=== PATIENT | male | born 1970 | race Caucasian/White ===

== ENCOUNTER 2019-01-08 07:58 | Observation (INO) | payer BC ==
[2019-01-06 12:45] LABS: BASOPHILS # (AUTO) 0.1 (0.0-0.1); BASOPHILS % 0.8 % (0.0-1.0); EOSINOPHILS # (AUTO) 0.3 (0.0-0.4); EOSINOPHILS % 4.4 % (0.0-6.0); HEMATOCRIT 44.9 % (38.2-49.6); HEMOGLOBIN 15.5 g/dL (14.0-18.0); LYMPHOCYTES # (AUTO) 1.6 (1.0-3.2); MEAN CORPUSCULAR HEMOGLOBIN 30.6 pg (28-32); MEAN CORPUSCULAR HGB CONC 34.5 g/dL (31-35); MEAN CORPUSCULAR VOLUME 88.6 fL (81-99); MONOCYTES # (AUTO) 0.8 (0.2-0.8); MONOCYTES % 10.8 % (4.4-11.3); NEUTROPHILS # (AUTO) 4.7 (2.1-6.9); NEUTROPHILS % 62.5 % (38.7-80.0); PLATELET COUNT 234 x10e3/uL (140-360); RED BLOOD COUNT 5.07 x10e6/uL (4.3-5.7); RED CELL DISTRIBUTION WIDTH 12.7 % (11.7-14.4)
[2019-01-06 12:59] LABS: INR 0.92; PROTHROMBIN TIME 12.9 seconds (11.9-14.5)
[2019-01-06 13:00] LABS: PARTIAL THROMBOPLASTIN TIME 30.1 seconds (23.8-35.5)
[2019-01-06 13:07] LABS: ANION GAP 12.8 mmol/L (8-16); BLOOD UREA NITROGEN 19 mg/dL (7-26); BUN/CREATININE RATIO 21 (6-25); CALCIUM 9.8 mg/dL (8.4-10.2); CARBON DIOXIDE 23 mmol/L (22-29); CHLORIDE 107 mmol/L (98-107); CREATININE, SERUM 0.91 mg/dL (0.72-1.25); EST GLOMERULAR FILTRATION RATE > 60 ML/MIN (60-); GLUCOSE 95 mg/dL (74-118); POTASSIUM 3.8 mmol/L (3.5-5.1); SODIUM 139 mmol/L (136-145)
--- NOTE | 2019-01-06 14:55 | Diagnostic Imaging Report ---
EXAMINATION: CHEST 2 VIEWS INDICATION: Pre-operative COMPARISON: None FINDINGS: LINES/TUBES:None LUNGS:The lungs are well-inflated. No focal consolidation or pulmonary edema. PLEURA:No pleural effusion or pneumothorax. MEDIASTINUM:The cardiomediastinal silhouette appears normal in size and shape. BONES/SOFT TISSUES:No acute osseous injury. ABDOMEN:No free air under the diaphragm. IMPRESSION: No focal pneumonia or pulmonary edema. Signed by: Gianni Hurtado MD on 01/06/2019 2:51 PM
[~2019-01-08] VITALS: Ht 182.9 cm; Wt 130.7 kg
[~2019-01-08 07:58] MED LIST: ACETAMINOPHEN 1000 MG/100 ML 100 ML IV ONE; ADDERALL 30 MG30 MG PO; ATORVASTATIN CA10 MG PO; LIDOCAINE HCL (LTA) 4 ML SOLN ONE; PRAVASTATIN SOD10 MG PO
--- OUTSIDE RECORDS SUMMARY | 2019-01-08 08:02 | XMS REPORT ---
Author Author [facility] Address Unknown Phone Unavailable Care Team Providers Care Art Editor Name Role Phone SAM LOBO Unavailable Unavailable Problems This patient has no known problems. Allergies, Adverse Reactions, Alerts This patient has no known allergies or adverse reactions. Medications This patient has no known medications. Results Test Description Test Time Test Comments Text Results Atomic Results Result Comments CHEST 2 VIEWS 2019-01-06 14:50:00 [place] [address] Patient Name: SWETA RAMIREZ MR #: [id number] : 1970 Age/Sex: 48/M Req #: [id number] [facility] Physician: Ordered by: SAM LOBO MD Report #: [id number] Location: OR Room/Bed: Procedure: [id number] DX/CHEST 2 VIEWS Exam Date: 01/06/19 Exam Time: 1309 REPORT STATUS: Signed EXAMINATION: CHEST 2 VIEWS INDICATION: Pre-operative COMPARISON: None FINDINGS: LINES/TUBES:None LUNGS:The lungs are well-inflated. No focal consolidation or pulmonary edema. PLEURA:No pleural effusion or pneumothorax. MEDIASTINUM:The cardiomediastinal silhouette appears normal in size and shape. BONES/SOFT TISSUES:No acute osseous injury. ABDOMEN:No free air under the diaphragm. IMPRESSION: No focal pneumonia or pulmonary edema. Signed by: Jeremy Strickland MD on 01/06/2019 2:51 PM Dictated By: JEREMY STRICKLAND MD 48 Transcribed By: JERO RIGGS on 01/06/191450 COPY TO: SAM LOBO MD
[2019-01-08] MEDS ORDERED: BACITRACIN 50,000 UNIT VIAL ONE (08:34)
[2019-01-08] MEDS ORDERED: BUPIVACAINE 0.5%/EPI 30 ML SDV INJ ONE (08:34)
[2019-01-08] MEDS ORDERED: THROMBIN FOR SOLN 5,000 UNIT VIAL ONE (08:34)
[2019-01-08] MEDS ORDERED: CEFAZOLIN SOD 1 GM/NS 50ML 50 ML IV ONE (08:45)
[2019-01-08] MEDS ORDERED: IBUPROFEN 800MG/ 250ML 250 ML IV ONE (11:47)
[2019-01-08] MEDS: LACTATED RINGER'S 1,000 ML IV SCH ×2 (13:17→20:00)
[2019-01-08] MEDS ORDERED: ONDANSETRON HCL INJ 2MG/ML 2ML 2 MG/ML VIAL IV PRN (13:30)
[2019-01-08] MEDS ORDERED: PROMETHAZINE HCL (IM) 25 MG/ML VIAL IM PRN (13:30)
[2019-01-08] MEDS ORDERED: HYDROMORPHONE 2MG/ML 2 MG/ML ML IV PRN (13:30)
[2019-01-08] MEDS ORDERED: ACETAMINOPHEN 325 MG TAB PO PRN (13:30)
[2019-01-08] MEDS ORDERED: CEPACOL SORE THROAT LOZENGES PO PRN (13:30)
[2019-01-08] MEDS ORDERED: MAGNESIUM/ALUMINUM/SIMETHICONE 30 ML UDC PO PRN (13:30)
[2019-01-08] MEDS ORDERED: OXYCODONE/ACETAMINOPHEN 5-325 1 EACH TABLET PO PRN (13:30)
[2019-01-08] MEDS ORDERED: ZOLPIDEM TARTRATE 5 MG TAB PO PRN (13:30)
[2019-01-08] MEDS ORDERED: CARISOPRODOL 350 MG TAB PO PRN (13:30)
[2019-01-08] MEDS ORDERED: MORPHINE SULFATE 5 MG/ML VIAL IM PRN (13:30)
[2019-01-08] MEDS: CEFAZOLIN SOD 1 GM/NS 50ML 50 ML IV SCH ×2 (14:00→18:13)
[2019-01-08] MEDS: DEXAMETHASONE SOD PHOS INJ 4 MG/ML VIAL IV SCH ×2 (14:00→21:01)
[2019-01-08] MEDS ORDERED: FENTANYL CITRATE/PF 100MCG/2 ML INJ ONE (14:08)
[2019-01-08] MEDS ORDERED: KETAMINE HCL INJ 50 MG/ML 10 ML VIAL ONE (14:08)
[2019-01-08] MEDS ORDERED: MIDAZOLAM HCL 2 MG/2 ML VIAL ONE (14:08)
[2019-01-08] MEDS ORDERED: PHENYLEPHRINE HCL 1% 10 MG/ML VIAL ONE (14:17)
[2019-01-08] MEDS ORDERED: SUCCINYLCHOLINE 200 MG/10 ML SYR ONE (14:17)
[2019-01-08] MEDS ORDERED: LIDOCAINE HCL 2% LOCAL INJ 5 ML SDV VIAL INJ ONE (14:17)
[2019-01-08] MEDS ORDERED: CEFAZOLIN SOD 1 GM VIAL ONE (14:17)
[2019-01-08] MEDS ORDERED: PROPOFOL IV EMULSION 10 MG/ML 20 ML VIAL ONE (14:17)
[2019-01-08] MEDS ORDERED: SEVOFLURANE INHAL SOLN 250 ML PEN BTL ONE (14:17)
[2019-01-08] MEDS ORDERED: ONDANSETRON HCL INJ 2MG/ML 2ML 2 MG/ML VIAL ONE (14:17)
[2019-01-08] MEDS ORDERED: DEXAMETHASONE SOD PHOS INJ 4 MG/ML VIAL ONE (14:17)
--- NOTE | 2019-01-08 16:38 | NUR ---
Received patient from PACU. Respiration even and unlabored without SOB. Anterior neck 2x2 dressing intact, clean and dry, no bleeding noted. Hard C- collar is in placed. Denies pain at this time. Family members at bedside. Peripheral pulses palpated. lung sounds clear to auscultation. Call light in reach.
[2019-01-08 17:00] VITALS: BP 146/96
[2019-01-08 17:08] VITALS: BP 146/96
[2019-01-08] MEDS ORDERED: MORPHINE SULFATE INJ 4 MG/ML INJ 1ML IM PRN (17:15)
[2019-01-08] MEDS ORDERED: SODIUM CHLORIDE 0.9% 250ML 250 ML ONE (18:35)
--- NOTE | 2019-01-08 18:55 | NUR ---
Report given to tow motor operator. Respiration even and unlabored without SOB. Call light in reach. Family member at bedside.
--- NOTE | 2019-01-08 19:04 | Operative Report ---
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 PROCEDURES: 1. C4-5 anterior cervical diskectomy and microsurgical osteophyte resection and allograft fusion, 85955. 2. C5-6 anterior cervical diskectomy and microsurgical osteophyte resection and allograft fusion, 91208. 3. Preparation of MTF corticocancellous allograft, 16522. 4. C4-5 and C5-6 anterior cervical plating with Synthes CSLP plate, 07710. ANESTHESIA: General. INDICATIONS: The patient is a 48-year-old man, who presents with severe spinal stenosis at C4-5 and C5-6 due to large disk osteophyte complexes with compression of the cord, myelomalacia, and left-sided myeloradiculopathy syndrome. The patient was taken to the operating room for 2-level anterior cervical decompression and fusion. PROCEDURE IN DETAIL: After induction of general anesthesia, the patient was placed on the operating table in supine position. The right side of the neck was prepped and draped in sterile fashion. The fluoroscopic C-arm was positioned in cross-table lateral orientation. A transverse incision was created on the right side of the neck, superimposed on the C5 vertebral body as determined by fluoroscopy. The platysma was divided in line with the incision. A subplatysmal dissection was carried out and avascular plane of dissection was developed medially in sternocleidomastoid muscle and was followed medial to the carotid sheath to the anterior border of the cervical spine. The deep cervical fascia was opened. The esophagus was retracted to the left. The attachments of longus colli muscles to the anterolateral aspects of vertebral bodies of C4, C5, and C6 were divided. The anterior longitudinal ligament was resected. [place] posts were inserted into C4 and C6 and the [place] distractor was used to distract both disk spaces simultaneously. The anterior annuli of the disks were incised with a #11 blade. The contents of both disks were thoroughly evacuated with angled curettes and pituitary rongeurs. The posterior osteophytes were meticulously drilled with a 2 mm cutting bur on a high-speed drill until they were completely removed. The posterior annulus of the disk, chronically herniated disk material, and the posterior longitudinal ligament were resected layer by layer until the dura was fully exposed and decompressed. In this process, large osteophytes markedly indenting the dura were carefully shelled out and removed. Meticulous hemostasis was secured. The endplates were then decorticated in preparation for fusion. Two pieces of tricortical iliac crest allograft were cut to the size and shapes of the disk spaces and were inserted into the disk spaces under distraction and fluoroscopic guidance. The distraction was released and distraction posts were removed. A Synthes CSLP variable-type anterior cervical plate measuring 34 mm was selected. One was affixed to the vertebral bodies of C4, C5, and C6 with 3 pairs of 14 x 4.35 mm screws. All screw holes were drilled and tapped on the lateral fluoroscopic guidance. All screws were locked with the appropriate locking screws. An excellent construct was obtained. The wound was copiously irrigated with bacitracin solution. Meticulous hemostasis was secured. Retraction was removed. The platysma was closed with 3-0 Vicryl sutures. The skin was closed with 4-0 Monocryl sutures in subcuticular fashion. Steri-Strips and dressing were applied. The patient was awakened, extubated, and taken to the postanesthesia care in stable condition. No intraoperative complications were encountered. Estimated blood loss was 30 mL. By the end of operation, the SSEP and MEP recordings were stable. Gee Whitfield MD PP/CHARLENE /[id number]
[2019-01-08 19:11] VITALS: BP 146/96
[2019-01-08 20:00] VITALS: BP 143/93
[2019-01-08] MEDS ORDERED: PRAVASTATIN 20 MG TAB PO SCH (21:00)
[2019-01-09] VITALS: BP 136/87
[2019-01-09] MEDS: CEFAZOLIN SOD 1 GM/NS 50ML 50 ML IV SCH ×2 (01:06→10:01)
[2019-01-09 04:00] VITALS: BP 112/72
[2019-01-09] MEDS: DEXAMETHASONE SOD PHOS INJ 4 MG/ML VIAL IV SCH (05:33)
[2019-01-09 07:21] VITALS: BP 148/81
[2019-01-09] MEDS ORDERED: NON-FORMULARY MEDICATION (Amphet Asp/Amphet/D-Amphet (Adderall 30 Mg Tablet) 30 MG) PO SCH (09:00)
[2019-01-09] MEDS ORDERED: NON-FORMULARY MEDICATION (Pravastatin Sodium 10 MG) PO SCH (09:00)
--- NOTE | 2019-01-09 09:13 | Diagnostic Imaging Report ---
EXAMINATION: C-SPINE 2 VIEWS AP LATERAL INDICATION: Postoperative COMPARISON: None FINDINGS: AP and lateral radiographs of the cervical spine were obtained. There are postoperative findings of anterior cervical discectomy and fusion at C4-6. There is straightening of the normal cervical lordosis. No unexpected fracture. Hardware is intact. There is mild thickening of the prevertebral soft tissues, likely postoperative. IMPRESSION: Expected postoperative findings status post anterior cervical discectomy and fusion at C4-6. Signed by: Gianni Hurtado MD on 01/09/2019 9:09 AM
--- NOTE | 2019-01-09 10:03 | NUR ---
Dressing CDI, removed at this time per MD orders. Pt tolerated well, stated pain 4 or 5/10 refused wanting pain medication. Last dose of IV ABX initiated at this time. at bedside. Call light within reach, bed in lowest position and locked.
[2019-01-09 10:31] VITALS: BP 148/81
== END 2019-01-09 11:00 | disposition home or self-care (01) ==
LOC: OR 07:58 → PACU V 13:19 → IMCU 16:44
PROVIDERS: ADMIT Neurological Surgery; ATTEND Neurological Surgery
DX: M50.021 Cervical disc disorder at C4-C5 level with myelopathy (principal); G47.33 Obstructive sleep apnea (adult) (pediatric); E66.9 Obesity, unspecified; Z68.38 Body mass index [BMI] 38.0-38.9, adult; E78.5 Hyperlipidemia, unspecified; M50.121 Cervical disc disorder at C4-C5 level with radiculopathy
CPT/HCPCS: 20931; 22551; 22552; 22845; 36415; 71046; 72040; 77003; 80048; 85025; 85610; 85730; 86850; 86900; 88304; 93005; C1763; G0378 ×2; J0131; J0690 ×3; J1100 ×2; J1170; J2001; J2370; J2250; J2405; J2704; J3010; J7050

== ENCOUNTER → 2019-02-05 | Outpatient (CLI) | payer BC ==
[~2019-02-05] MED LIST changes: -ACETAMINOPHEN 1000 MG/100 ML 100 ML IV ONE; -LIDOCAINE HCL (LTA) 4 ML SOLN ONE
--- NOTE | 2019-02-05 09:08 | Diagnostic Imaging Report ---
EXAMINATION: SPINE CERVICAL AP LAT FLEX EXT INDICATION: Postoperative COMPARISON: None FINDINGS: AP and lateral radiographs (neutral, flexion, extension) of the cervical spine were obtained. Again seen are postoperative findings of anterior cervical discectomy and fusion at C4-6. There is mild straightening of the normal cervical lordosis. Unchanged minimal retrolisthesis at C3-4. Alignment remains unchanged on flexion and extension views. No unexpected fracture. Hardware is intact. Prevertebral soft tissues are normal in thickness. IMPRESSION: Unchanged alignment status post anterior cervical discectomy and fusion at C4-6. Signed by: Gianni Hurtado MD on 02/05/2019 9:05 AM
== END ==
LOC: RAD 08:41
PROVIDERS: ATTEND Neurological Surgery
DX: M50.20 Other cervical disc displacement, unspecified cervical region (principal); M43.22 Fusion of spine, cervical region
CPT/HCPCS: 72050

== ENCOUNTER → 2020-02-26 | Day surgery (SDC) | payer BC ==
[~2020-02-26] MED LIST changes: +BUPIVACAINE HCL 0.5% INJ 30 ML VIAL INJ ONE; +CEFAZOLIN SOD 1 GM/NS 50ML 50 ML IV ONE; +DEXAMETHASONE SOD PHOS INJ 4 MG/ML VIAL ONE; +GLYCOPYRROLATE INJ 0.2 MG/ML VIAL ONE; +LIDOCAINE HCL 2% JELLY 5 ML TUBE ONE; +LIDOCAINE HCL 2% LOCAL INJ 5 ML SDV VIAL INJ ONE; +MUPIROCIN 2% OINT 22 GM TUBE ONE; +NEOSTIGMINE 1 MG/ML 10ML VIAL ONE; +ONDANSETRON HCL INJ 2MG/ML 2ML 2 MG/ML VIAL ONE; +PROPOFOL IV EMULSION 10 MG/ML 20 ML VIAL ONE; +ROCURONIUM BROMIDE 10 MG/ML 5ML VIAL IV ONE; +SEVOFLURANE INHAL SOLN 250 ML PEN BTL ONE; +SUCCINYLCHOLINE CHLORIDE 20 MG/ML 10ML VIAL ONE
[2020-02-26 12:45] VITALS: BP 118/72
== END | disposition home or self-care (01) ==
LOC: OR 08:58
PROVIDERS: ATTEND Plastic Surgery
DX: L76.34 Postprocedural seroma of skin and subcutaneous tissue following other procedure (principal); G47.33 Obstructive sleep apnea (adult) (pediatric); Z01.810 Encounter for preprocedural cardiovascular examination; Z01.812 Encounter for preprocedural laboratory examination; Z20.828 Contact with and (suspected) exposure to other viral communicable diseases; Y83.8 Other surgical procedures as the cause of abnormal reaction of the patient, or of later complication, without mention of misadventure at the time of the procedure
CPT/HCPCS: 10140; 93005; J0330; J0690; J1100; J2001 ×2; J2405; J2704; J2710; U0002

== ENCOUNTER → 2020-04-19 | Day surgery (SDC) | payer BC ==
[~2020-04-19] MED LIST changes: +ACETAMINOPHEN/CODEINE 300MG - 30MG TAB ONE; +EPHEDRINE SULFATE INJ 50 MG/ML VIAL ONE; +FENTANYL CITRATE/PF 100MCG/2 ML INJ ONE; -GLYCOPYRROLATE INJ 0.2 MG/ML VIAL ONE; +LIDOCAINE 1% W/EPINEPHRINE 20 ML VIAL ONE; +MIDAZOLAM HCL 2 MG/2 ML VIAL ONE; -NEOSTIGMINE 1 MG/ML 10ML VIAL ONE; -SUCCINYLCHOLINE CHLORIDE 20 MG/ML 10ML VIAL ONE; +SUGAMMADEX SODIUM 200 MG/2 ML VIAL IV ONE; +TYLENOL # 31 EA PO
[2020-04-19 09:55] VITALS: BP 136/57
== END | disposition home or self-care (01) ==
LOC: OR 05:50
PROVIDERS: ATTEND Plastic Surgery
DX: D48.1 Neoplasm of uncertain behavior of connective and other soft tissue (principal); G47.33 Obstructive sleep apnea (adult) (pediatric); E78.5 Hyperlipidemia, unspecified; F90.9 Attention-deficit hyperactivity disorder, unspecified type; Z01.812 Encounter for preprocedural laboratory examination; Z20.822 Contact with and (suspected) exposure to COVID-19; Z68.41 Body mass index [BMI] 40.0-44.9, adult
CPT/HCPCS: 21933; 88304; J0690; J1100; J2001 ×2; J2250; J2405; J2704; J3010; U0002; 88342

== ENCOUNTER → 2021-03-31 | Day surgery (SDC) | payer BC ==
[2021-03-28 11:13] LABS: BASOPHILS # (AUTO) 0.1 (0.0-0.1); BASOPHILS % 0.7 % (0.0-1.0); EOSINOPHILS # (AUTO) 0.2 (0.0-0.4); EOSINOPHILS % 2.9 % (0.0-6.0); HEMATOCRIT 48.4 % (38.2-49.6); HEMOGLOBIN 16.3 g/dL (14.0-18.0); LYMPHOCYTES # (AUTO) 1.6 (1.0-3.2); LYMPHOCYTES % 21.9 % (18.0-39.1); MEAN CORPUSCULAR HEMOGLOBIN 29.5 pg (28-32); MEAN CORPUSCULAR HGB CONC 33.7 g/dL (31-35); MEAN CORPUSCULAR VOLUME 87.5 fL (81-99); MONOCYTES # (AUTO) 0.7 (0.2-0.8); MONOCYTES % 10.3 % (4.4-11.3); NEUTROPHILS # (AUTO) 4.6 (2.1-6.9); NEUTROPHILS % 63.9 % (38.7-80.0); PLATELET COUNT 260 x10e3/uL (140-360); RED BLOOD COUNT 5.53 x10e6/uL (4.3-5.7); RED CELL DISTRIBUTION WIDTH 12.5 % (11.7-14.4)
[2021-03-28 12:15] LABS: ANION GAP 7.2 mmol/L (8-16); CALCIUM 9.5 mg/dL (8.4-10.2); CREATININE, SERUM 1.08 mg/dL (0.72-1.25); POTASSIUM 4.2 mmol/L (3.5-5.1)
[~2021-03-31] MED LIST changes: +ACETAMINOPHEN 1000 MG/100 ML IV ONE; -ACETAMINOPHEN/CODEINE 300MG - 30MG TAB ONE; +BUPIVACAINE 0.25% 30ML SDV ONE; -BUPIVACAINE HCL 0.5% INJ 30 ML VIAL INJ ONE; -CEFAZOLIN SOD 1 GM/NS 50ML 50 ML IV ONE; +DEXAMETHASONE SOD PHOS INJ 4 MG/ML SDV ONE; -DEXAMETHASONE SOD PHOS INJ 4 MG/ML VIAL ONE; -EPHEDRINE SULFATE INJ 50 MG/ML VIAL ONE; +GLYCOPYRROLATE INJ 0.2 MG/ML VIAL ONE; +KETOROLAC TROMETHAMINE 30 MG/ML VIAL ONE; -LIDOCAINE 1% W/EPINEPHRINE 20 ML VIAL ONE; -LIDOCAINE HCL 2% JELLY 5 ML TUBE ONE; +MEPERIDINE HCL INJ 25 MG/ML VIAL ONE; -MUPIROCIN 2% OINT 22 GM TUBE ONE; +NEOSTIGMINE 1 MG/ML 10ML VIAL ONE; +POVIDONE IODINE 0.05% 0.05 % ML PO ONE
[2021-03-31 10:45] VITALS: BP 118/70
== END | disposition home or self-care (01) ==
LOC: OR 07:03
PROVIDERS: ATTEND Surgery
DX: K43.6 Other and unspecified ventral hernia with obstruction, without gangrene (principal); G47.33 Obstructive sleep apnea (adult) (pediatric); F98.8 Other specified behavioral and emotional disorders with onset usually occurring in childhood and adolescence; Z01.812 Encounter for preprocedural laboratory examination; Z20.822 Contact with and (suspected) exposure to COVID-19; Z79.899 Other long term (current) drug therapy; Z98.1 Arthrodesis status
CPT/HCPCS: 36415; 49561; 49568; 80048; 85025; C1781; J2175; U0002; J1100; J1885; J2001; J2250; J2405; J2710; J3010

== ENCOUNTER 2024-07-07 12:25 | Inpatient (IN) | payer BC ==
[~2024-07-07] VITALS: Ht 185.4 cm; Wt 130.6 kg
[~2024-07-07 12:25] MED LIST changes: -ACETAMINOPHEN 1000 MG/100 ML IV ONE; -BUPIVACAINE 0.25% 30ML SDV ONE; -DEXAMETHASONE SOD PHOS INJ 4 MG/ML SDV ONE; -FENTANYL CITRATE/PF 100MCG/2 ML INJ ONE; -GLYCOPYRROLATE INJ 0.2 MG/ML VIAL ONE; -KETOROLAC TROMETHAMINE 30 MG/ML VIAL ONE; -LIDOCAINE HCL 2% LOCAL INJ 5 ML SDV VIAL INJ ONE; -MEPERIDINE HCL INJ 25 MG/ML VIAL ONE; -MIDAZOLAM HCL 2 MG/2 ML VIAL ONE; -NEOSTIGMINE 1 MG/ML 10ML VIAL ONE; -ONDANSETRON HCL INJ 2MG/ML 2ML 2 MG/ML VIAL ONE; -POVIDONE IODINE 0.05% 0.05 % ML PO ONE; -PROPOFOL IV EMULSION 10 MG/ML 20 ML VIAL ONE; -ROCURONIUM BROMIDE 10 MG/ML 5ML VIAL IV ONE; -SEVOFLURANE INHAL SOLN 250 ML PEN BTL ONE; -SUGAMMADEX SODIUM 200 MG/2 ML VIAL IV ONE
[2024-07-07] MEDS: SODIUM CHLORIDE 0.9% 1000ML 1,000 ML IV STA (13:33)
[2024-07-07] MEDS: DILTIAZEM HCL 5 MG/ML 5 ML VIAL IV STA (13:34)
[2024-07-07 13:48] LABS: BASOPHILS % 0.4 % (0.0-1.0); EOSINOPHILS # (AUTO) 0.3 (0.0-0.4); EOSINOPHILS % 2.4 % (0.0-6.0); HEMATOCRIT 54.6 % (38.2-49.6); HEMOGLOBIN 19.1 g/dL (14.0-18.0); LYMPHOCYTES # (AUTO) 2.1 (1.0-3.2); LYMPHOCYTES % 20.1 % (18.0-39.1); MEAN CORPUSCULAR HEMOGLOBIN 30.4 pg (28-32); MEAN CORPUSCULAR VOLUME 86.9 fL (81-99); MONOCYTES # (AUTO) 1.1 (0.2-0.8); MONOCYTES % 10.1 % (4.4-11.3); NEUTROPHILS # (AUTO) 6.9 (2.1-6.9); NEUTROPHILS % 66.7 % (38.7-80.0); PLATELET COUNT 245 x10e3/uL (140-360); RED BLOOD COUNT 6.28 x10e6/uL (4.3-5.7); RED CELL DISTRIBUTION WIDTH 13.6 % (11.7-14.4); WHITE BLOOD COUNT 10.38 x10e3/uL (4.8-10.8)
[2024-07-07 14:15] LABS: INR 0.96; PROTHROMBIN TIME 13.4 seconds (11.9-14.5)
[2024-07-07 14:16] LABS: PARTIAL THROMBOPLASTIN TIME 33.2 seconds (23.8-35.5)
[2024-07-07 14:23] LABS: ALBUMIN 3.8 g/dL (3.5-5.0); ALBUMIN/GLOBULIN RATIO 1.4 (0.8-2.0); ANION GAP 16.9 mmol/L (8-16); BILIRUBIN,TOTAL 1.8 mg/dL (0.2-1.2); CALCIUM 9.4 mg/dL (8.4-10.2); CREATININE, SERUM 1.22 mg/dL (0.72-1.25); MAGNESIUM 2.1 MG/DL (1.3-2.1); POTASSIUM 3.9 mmol/L (3.5-5.1); TOTAL PROTEIN 6.6 g/dL (6.5-8.1)
[2024-07-07] MEDS: METOPROLOL TARTRATE 25 MG TAB PO ONE (14:28)
[2024-07-07 14:44] LABS: THYROID STIMULATING HORMONE 2.678 uIU/mL (0.350-4.940); TROPONIN I 0.012 ng/mL (0-0.300)
[2024-07-07] MEDS: ENOXAPARIN SODIUM INJ 100 MG/ML SYR SC SCH (15:29)
[2024-07-07] MEDS ORDERED: ONDANSETRON HCL INJ 2MG/ML 2ML 2 MG/ML VIAL IV PRN (16:30)
[2024-07-07 17:45] VITALS: PULSE 86; RESP 16; TEMP 98.5
[2024-07-07 20:00] VITALS: BP 122/86; PULSE 106; RESP 19; TEMP 97.8; O2SAT 97
[2024-07-07] MEDS: METOPROLOL TARTRATE 25 MG TAB PO SCH (21:24)
[2024-07-07 23:21] VITALS: BP 122/86; PULSE 106; RESP 19; TEMP 97.8; O2SAT 97
[2024-07-07] MEDS ORDERED: ROPINIROLE HCL1 MG PO (23:34)
[2024-07-08] VITALS (9 sets, daily range): BP systolic 100–132; BP diastolic 62–111; PULSE 79–114; RESP 18–21; TEMP 97.8–98.5; O2SAT 95–98
[2024-07-08 00:39] LABS: TROPONIN I 0.014 ng/mL (0-0.300)
[2024-07-08 06:31] LABS: BASOPHILS % 0.4 % (0.0-1.0); EOSINOPHILS # (AUTO) 0.2 (0.0-0.4); EOSINOPHILS % 2.7 % (0.0-6.0); HEMATOCRIT 54.8 % (38.2-49.6); HEMOGLOBIN 18.8 g/dL (14.0-18.0); LYMPHOCYTES # (AUTO) 2.3 (1.0-3.2); LYMPHOCYTES % 25.3 % (18.0-39.1); MEAN CORPUSCULAR HEMOGLOBIN 30.6 pg (28-32); MEAN CORPUSCULAR HGB CONC 34.3 g/dL (31-35); MEAN CORPUSCULAR VOLUME 89.1 fL (81-99); MONOCYTES # (AUTO) 1.1 (0.2-0.8); MONOCYTES % 11.7 % (4.4-11.3); NEUTROPHILS # (AUTO) 5.4 (2.1-6.9); NEUTROPHILS % 59.6 % (38.7-80.0); PLATELET COUNT 230 x10e3/uL (140-360); RED BLOOD COUNT 6.15 x10e6/uL (4.3-5.7); RED CELL DISTRIBUTION WIDTH 13.7 % (11.7-14.4)
[2024-07-08 07:07] LABS: ALBUMIN 3.7 g/dL (3.5-5.0); ALBUMIN/GLOBULIN RATIO 1.4 (0.8-2.0); ANION GAP 14.8 mmol/L (8-16); BILIRUBIN,TOTAL 1.5 mg/dL (0.2-1.2); CALCIUM 8.6 mg/dL (8.4-10.2); CHOL/HDL RATIO 6.5 (3.9-4.7); CREATININE, SERUM 1.09 mg/dL (0.72-1.25); POTASSIUM 3.8 mmol/L (3.5-5.1); TOTAL PROTEIN 6.4 g/dL (6.5-8.1)
[2024-07-08 07:50] LABS: TROPONIN I 0.024 ng/mL (0-0.300)
[2024-07-08] MEDS: METOPROLOL TARTRATE 25 MG TAB PO SCH ×2 (09:18→12:00)
[2024-07-08] MEDS: DIGOXIN INJ 0.25 MG/ML 2 ML AMP IV ONE (23:29)
[2024-07-09] VITALS (9 sets, daily range): BP systolic 104–154; BP diastolic 68–91; PULSE 62–107; RESP 18–20; TEMP 97.8–98.7; O2SAT 95–96
[2024-07-09] MEDS: FUROSEMIDE INJ 10 MG/ML 4 ML VIAL IV SCH (10:21)
[2024-07-09] MEDS: DIGOXIN 0.25 MG TAB PO SCH (14:52)
[2024-07-10] VITALS: BP 132/89; PULSE 79; RESP 20; TEMP 98.3; O2SAT 99
[2024-07-10 04:00] VITALS: BP 122/91; PULSE 77; RESP 18; TEMP 97.4; O2SAT 96
[2024-07-10 08:01] VITALS: BP 121/79; PULSE 79; TEMP 98.5
[2024-07-10 12:56] VITALS: BP 109/72; PULSE 72; RESP 20; TEMP 98.2
== END 2024-07-10 16:15 | disposition home or self-care (01) | DRG 308 ==
LOC: ER 13:19 → ERHOLD 16:26 → MED/SURG2 18:20
PROVIDERS: ADMIT Internal Medicine; ATTEND Internal Medicine
DX: I48.91 Unspecified atrial fibrillation (principal); I50.31 Acute diastolic (congestive) heart failure; D45 Polycythemia vera; G47.33 Obstructive sleep apnea (adult) (pediatric); F90.9 Attention-deficit hyperactivity disorder, unspecified type; E66.01 Morbid (severe) obesity due to excess calories; Z68.38 Body mass index [BMI] 38.0-38.9, adult; Z79.899 Other long term (current) drug therapy
CPT/HCPCS: 36415; 71045; 80053; 80061; 82550; 83735; 83880; 84443; 84484; 85025; 85379; 85610; 85730; 93005; 93306; 99284; J1160; J1650; J1938; J7030